=== PATIENT | female | born 1960 | race American Indian/Alaskan Native ===

== ENCOUNTER 2022-02-04 13:11 | Inpatient (IN) | payer BC ==
[2022-02-04] MEDS ORDERED: SODIUM CHLORIDE 0.9% 1000 ML 1,000 ML IV ONE ×2 (14:32→16:20)
[2022-02-04 15:08] LABS: Basophils # (Auto) 0.2 K/mm3 (0.0-0.1); Basophils % (Auto) 0.8 % (0.0-1.8); Hematocrit 34.4 % (30.3-42.9); Hemoglobin 11.1 gm/dl (10.1-14.3); Lymphocytes # (Auto) 1.4 K/mm3 (1.2-5.4); Mean Corpuscular HGB Conc 32 % (30-34); Mean Corpuscular Volume 77 fl (79-97); Monocytes # (Auto) 1.4 K/mm3 (0.0-0.8); Monocytes % (Auto) 7.2 % (0.0-7.3); Platelet Count 283 K/mm3 (140-440); Red Blood Count 4.48 M/mm3 (3.65-5.03); Red Cell Distribution Width 15.6 % (13.2-15.2)
--- NOTE | 2022-02-04 15:31 | Cat Scan Report ---
CT head/brain wo con INDICATION: ams, weakness . TECHNIQUE: Routine CT head. All CT scans at this location are performed using CT dose reduction for A TR by means of automated exposure control. COMPARISON: None. FINDINGS: Intracranial: Severino-white matter differentiation is maintained. No intracranial hemorrhage. No extra a xial collection. No hydrocephalus. No herniation. Partially empty appearance of sella. Sinuses: Mild mucosal thickening left ethmoid air cells. Otherwise, paranasal sinuses and mastoid air cells are essentially clear. Orbits: Globes are intact. Calvarium: No acute fracture. IMPRESSION: 1. No acute intracranial abnormality. Signer Name: Andres Corona MD Signed: 02/04/2022 3:26 PM Workstation Name: [id number]
[2022-02-04 16:00] LABS: Alanine Aminotransferase 15 units/L (7-56); Albumin 3.4 g/dL (3.9-5); BUN/Creatinine Ratio 32; Blood Urea Nitrogen 55 mg/dL (7-17); Calcium 8.8 mg/dL (8.4-10.2); Creatine Kinase MB 2.6 ng/mL (0.0-4.0); Hemolysis Index 19
[2022-02-04 16:11] LABS: Free T4 (Free Thyroxine) 1.05 ng/dL (0.76-1.46)
[2022-02-04] MEDS ORDERED: INSULIN REGULAR, HUMAN 100 UNITS/1 ML IV ONE (16:20)
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
--- NOTE | 2022-02-04 16:50 | XRay Report ---
CHEST 1 VIEW 02/04/2022 4:29 PM INDICATION / CLINICAL INFORMATION: weaknesss. COMPARISON: None available. FINDINGS: SUPPORT DEVICES: None. HEART / MEDIASTINUM: No significant abnormality. LUNGS / PLEURA: Nodular area right hilum. No acute appearing infiltrate. No pneumothorax. ADDITIONAL FINDINGS: No significant additional findings. IMPRESSION: 1. Nodular area right hilum is favored to be artifactual. Follow-up PA and lateral chest is recommend ed. 2. No acute infiltrate. Signer Name: Garrick Moore MD Signed: 02/04/2022 4:45 PM Workstation Name: [email or web address]
[2022-02-04] MEDS ORDERED: ONDANSETRON 4 MG/2 ML INJ IV PRN ×2 (17:33→20:09)
[2022-02-04] MEDS ORDERED: ACETAMINOPHEN 325 MG TAB PO PRN (17:33)
[2022-02-04] MEDS ORDERED: METOCLOPRAMIDE 10 MG/2 ML INJ IV PRN (20:09)
[2022-02-04] MEDS ORDERED: HYDROmorphone 0.5 MG/0.5 ML INJ IV PRN (20:09)
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
[2022-02-04] MEDS ORDERED: FAMOTIDINE 20 MG/2 ML INJ IV SCH (22:00)
[2022-02-04] MEDS: INSULIN GLARGINE 100 UNITS/ML SUB-Q SCH (23:13)
[2022-02-04] MEDS: INSULIN LISPRO 100 UNIT/ML SUB-Q SCH ×2 (23:14)
[2022-02-05] MEDS: INSULIN LISPRO 100 UNIT/ML SUB-Q SCH ×10 (02:50→22:11)
[2022-02-05 05:29] LABS: Hematocrit 33.7 % (30.3-42.9); Hemoglobin 10.9 gm/dl (10.1-14.3); Mean Corpuscular HGB Conc 32 % (30-34); Mean Corpuscular Volume 76 fl (79-97); Platelet Count 259 K/mm3 (140-440); Red Blood Count 4.45 M/mm3 (3.65-5.03); Red Cell Distribution Width 15.2 % (13.2-15.2)
[2022-02-05 05:52] LABS: Albumin 2.6 g/dL (3.9-5); Calcium 8.4 mg/dL (8.4-10.2)
[2022-02-05 06:35] LABS: Band Neutrophils # (Manual) 0.2 K/mm3; Basophils % (Manual) 0 % (0.0-1.8); Eosinophils % (Manual) 0 % (0.0-4.3); Monocytes % (Manual) 0 % (0.0-7.3); Total Cells Counted 100
[2022-02-05] MEDS: SODIUM CHLORIDE 0.9% 1000 ML 1,000 ML IV SCH ×2 (06:35→20:19)
[2022-02-05 06:43] LABS: Hypochromasia 1+; Platelet Estimate Consistent w Auto
[2022-02-05 06:44] LABS: Target Cells Rare
[2022-02-05] MEDS ORDERED: GLIMEPIRIDE 4 MG TAB PO SCH (08:00)
--- NOTE | 2022-02-05 09:06 | Electrocardiograph Report ---
[facility] Test Date: 2022-02-04 Test Time: 13:51:31 Pat Name: BETTY HORN Department: Room: A380 1 Gender: F Cell Phone Repair Technician: MAEVE : 1960 Requested By: DEVEN ZAVALA Order Number: [id number] Reading MD: Brown Lowe Measurements Intervals [place] Rate: 110 P: 63 TN: 119 QRS: -1 QRSD: 78 T: 21 QT: 318 QTc: 431 Interpretive Statements Sinus tachycardia nonspecific st-t No previous ECG available for comparison Electronically Signed On 02-05-2022 9:05:46 EDT by Brown Lowe
[2022-02-05] MEDS: metFORMIN XR 500MG TAB PO SCH (09:16)
[2022-02-05] MEDS: FAMOTIDINE 20 MG TAB PO SCH ×2 (09:16→21:22)
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
[2022-02-05] MEDS: MORPHINE 2 MG/1 ML INJ IV PRN (11:15)
[2022-02-05] MEDS: amLODIPine 10 MG TAB PO SCH (12:46)
[2022-02-05] MEDS: VALSARTAN 160MG TAB PO SCH ×2 (12:47→21:21)
[2022-02-05] MEDS: AZITHROMYCIN 250 MG TAB PO SCH (13:26)
[2022-02-05] MEDS ORDERED: metroNIDAZOLE 500 MG TAB PO SCH (14:00)
[2022-02-05 18:31] LABS: Bacteria,Urine 1+ /HPF (Negative); Bilirubin,Urine NEG (Negative); Blood,Urine NEG (Negative); Color,Urine Yellow (Yellow); Mucus,Urine FEW /HPF; Urobilinogen,Urine < 2.0 mg/dL (<2.0)
[2022-02-05 18:37] LABS: Amphetamine Screen,Urine Negative; Cannabinoid Screen,Urine Negative; Cocaine Screen,Urine Negative; Methadone Screen,Urine Negative; Opiate Screen,Urine Negative
[2022-02-05 19:07] LABS: Benzodiazepines Screen,Urine Positive
[2022-02-05] MEDS: INSULIN GLARGINE 100 UNITS/ML SUB-Q SCH (22:07)
[2022-02-06] MEDS: SODIUM CHLORIDE 0.9% 1000 ML 1,000 ML IV SCH ×3 (05:16→23:04)
[2022-02-06 05:58] LABS: Basophils % (Auto) 0.1 % (0.0-1.8); Eosinophils % (Auto) 0.2 % (0.0-4.3); Hematocrit 30.9 % (30.3-42.9); Hemoglobin 9.8 gm/dl (10.1-14.3); Lymphocytes # (Auto) 2.8 K/mm3 (1.2-5.4); Lymphocytes % (Auto) 16.1 % (13.4-35.0); Mean Corpuscular HGB Conc 32 % (30-34); Mean Corpuscular Volume 76 fl (79-97); Monocytes # (Auto) 1.1 K/mm3 (0.0-0.8); Monocytes % (Auto) 6.6 % (0.0-7.3); Platelet Count 240 K/mm3 (140-440); Red Blood Count 4.04 M/mm3 (3.65-5.03); Red Cell Distribution Width 15.1 % (13.2-15.2)
[2022-02-06 06:08] LABS: Calcium 8.1 mg/dL (8.4-10.2)
[2022-02-06] MEDS: metFORMIN XR 500MG TAB PO SCH (08:24)
[2022-02-06] MEDS: INSULIN LISPRO 100 UNIT/ML SUB-Q SCH ×9 (08:37→23:07)
[2022-02-06] MEDS: AZITHROMYCIN 250 MG TAB PO SCH (09:13)
[2022-02-06] MEDS: MORPHINE 2 MG/1 ML INJ IV PRN (09:13)
[2022-02-06] MEDS: FAMOTIDINE 20 MG TAB PO SCH ×2 (09:14→22:55)
[2022-02-06] MEDS: amLODIPine 10 MG TAB PO SCH (09:14)
[2022-02-06] MEDS: VALSARTAN 160MG TAB PO SCH ×2 (09:14→22:55)
[2022-02-06] MEDS: METOPROLOL SUCCINATE XL 50 MG TAB PO SCH (09:14)
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
[2022-02-06] MEDS: PREGABALIN 75 MG CAP PO SCH ×2 (12:22→22:55)
[2022-02-06] MEDS: INSULIN GLARGINE 100 UNITS/ML SUB-Q SCH (23:05)
[2022-02-07] MEDS: ACETAMINOPHEN 325 MG TAB PO PRN (00:17)
[2022-02-07] MEDS: SODIUM CHLORIDE 0.9% 1000 ML 1,000 ML IV SCH (04:50)
[2022-02-07] MEDS: INSULIN LISPRO 100 UNIT/ML SUB-Q SCH ×8 (08:40→23:08)
[2022-02-07] MEDS ORDERED: cefTRIAXone/NS 1 GM/50 ML 1 GM/50 ML BAG IV SCH (10:00)
[2022-02-07] MEDS: metFORMIN XR 500MG TAB PO SCH (10:22)
[2022-02-07 11:14] LABS: Calcium 7.6 mg/dL (8.4-10.2)
[2022-02-07 11:17] LABS: Hematocrit 32.6 % (30.3-42.9); Hemoglobin 10.6 gm/dl (10.1-14.3); Mean Corpuscular HGB Conc 33 % (30-34); Mean Corpuscular Volume 75 fl (79-97); Platelet Count 249 K/mm3 (140-440); Red Blood Count 4.32 M/mm3 (3.65-5.03); Red Cell Distribution Width 15.1 % (13.2-15.2)
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
[2022-02-07 11:41] LABS: Eosinophils # (Auto) 0.2 K/mm3 (0.0-0.4); Monocytes # (Auto) 0.9 K/mm3 (0.0-0.8); Monocytes % (Auto) 5.6 % (0.0-7.3)
[2022-02-07 11:46] LABS: Basophils % (Auto) 0.2 % (0.0-1.8); Lymphocytes # (Auto) 2.9 K/mm3 (1.2-5.4); Lymphocytes % (Auto) 18.1 % (13.4-35.0)
[2022-02-07] MEDS: METOPROLOL SUCCINATE XL 50 MG TAB PO SCH (12:00)
[2022-02-07] MEDS: VALSARTAN 160MG TAB PO SCH ×2 (12:00→23:52)
[2022-02-07] MEDS: FAMOTIDINE 20 MG TAB PO SCH ×2 (12:22→23:51)
[2022-02-07] MEDS: amLODIPine 10 MG TAB PO SCH (12:36)
[2022-02-07] MEDS: PREGABALIN 75 MG CAP PO SCH ×2 (14:22→23:51)
[2022-02-07] MEDS: AZITHROMYCIN 250 MG TAB PO SCH (14:22)
[2022-02-07] MEDS: ALBUTEROL 2.5 MG/3 ML NEBU IH PRN ×2 (18:54→18:56)
[2022-02-07] MEDS ORDERED: BUDESONIDE 0.5 MG/2 ML NEBU IH ONE (20:00)
[2022-02-07] MEDS ORDERED: VANCOMYCIN/NS 1 GM/250 ML 1 GM/250 ML BAG IV SCH (22:00)
--- NOTE | 2022-02-07 22:06 | XRay Report ---
CHEST 1 VIEW 02/07/2022 8:57 PM INDICATION / CLINICAL INFORMATION: SOB and wheezing. COMPARISON: 02/04/2022 FINDINGS: SUPPORT DEVICES: None. HEART / MEDIASTINUM: No significant abnormality. LUNGS / PLEURA: There are low lung volumes bilaterally. No focal infiltrate is seen. No pneumothorax. ADDITIONAL FINDINGS: No significant additional findings. IMPRESSION: 1. No acute findings. Signer Name: Antonio Herrera MD Signed: 02/07/2022 10:02 PM Workstation Name: [id number]
[2022-02-07] MEDS: INSULIN GLARGINE 100 UNITS/ML SUB-Q SCH (23:06)
[2022-02-07] MEDS: VANCOMYCIN 2,000 MG in SODIUM CHLORIDE 0.9% 500 ML 500 ML IV SCH (23:50)
[2022-02-07] MEDS: CEFEPIME/NS 1 GM/100 ML 1 GM/100 ML BAG IV SCH (23:51)
[2022-02-08] MEDS: ACETAMINOPHEN 325 MG TAB PO PRN ×2 (05:39→16:49)
[2022-02-08] MEDS: CEFEPIME/NS 1 GM/100 ML 1 GM/100 ML BAG IV SCH ×3 (05:40→21:52)
[2022-02-08] MEDS: INSULIN LISPRO 100 UNIT/ML SUB-Q SCH ×8 (08:15→21:53)
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
[2022-02-08] MEDS: VANCOMYCIN 2,000 MG in SODIUM CHLORIDE 0.9% 500 ML 500 ML IV SCH ×2 (10:01→21:52)
[2022-02-08] MEDS: PREGABALIN 75 MG CAP PO SCH ×2 (10:01→21:52)
[2022-02-08] MEDS: metFORMIN XR 500MG TAB PO SCH (10:01)
[2022-02-08] MEDS: FAMOTIDINE 20 MG TAB PO SCH ×2 (10:02→21:52)
[2022-02-08] MEDS: amLODIPine 10 MG TAB PO SCH (10:02)
[2022-02-08] MEDS: METOPROLOL SUCCINATE XL 50 MG TAB PO SCH (10:02)
[2022-02-08] MEDS ORDERED: MORPHINE 2 MG/1 ML INJ IV PRN (11:05)
[2022-02-08] MEDS: VALSARTAN 160MG TAB PO SCH ×2 (11:52→21:53)
[2022-02-08] MEDS ORDERED: ALBUTEROL 8.5 GM MDI INHALATION IH PRN (13:04)
[2022-02-08] MEDS: ALBUTEROL 2.5 MG/3 ML NEBU IH PRN (14:09)
[2022-02-08 15:25] LABS: Basophils % (Auto) 0.2 % (0.0-1.8); Eosinophils # (Auto) 0.2 K/mm3 (0.0-0.4); Eosinophils % (Auto) 1.3 % (0.0-4.3); Hematocrit 32.8 % (30.3-42.9); Hemoglobin 10.2 gm/dl (10.1-14.3); Lymphocytes # (Auto) 3.6 K/mm3 (1.2-5.4); Lymphocytes % (Auto) 22.1 % (13.4-35.0); Mean Corpuscular HGB Conc 31 % (30-34); Mean Corpuscular Volume 77 fl (79-97); Monocytes # (Auto) 1.3 K/mm3 (0.0-0.8); Monocytes % (Auto) 7.9 % (0.0-7.3); Platelet Count 269 K/mm3 (140-440); Red Blood Count 4.28 M/mm3 (3.65-5.03); Red Cell Distribution Width 15.1 % (13.2-15.2)
[2022-02-08 15:38] LABS: Calcium 7.4 mg/dL (8.4-10.2)
[2022-02-08] MEDS: INSULIN GLARGINE 100 UNITS/ML SUB-Q SCH (21:54)
[2022-02-09] MEDS: CEFEPIME/NS 1 GM/100 ML 1 GM/100 ML BAG IV SCH ×3 (05:16→21:49)
[2022-02-09] MEDS: INSULIN LISPRO 100 UNIT/ML SUB-Q SCH ×8 (07:54→21:49)
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
[2022-02-09] MEDS ORDERED: SODIUM CHLORIDE 0.9% 1000 ML 1,000 ML IV SCH (08:15)
[2022-02-09] MEDS ORDERED: VANCOMYCIN 2,000 MG in SODIUM CHLORIDE 0.9% 500 ML 500 ML IV SCH (08:30)
[2022-02-09] MEDS ORDERED: VANCOMYCIN PHARMACY TO DOSE IV SCH (09:00)
[2022-02-09] MEDS: FAMOTIDINE 20 MG TAB PO SCH ×2 (09:11→21:48)
[2022-02-09] MEDS: metFORMIN XR 500MG TAB PO SCH (09:11)
[2022-02-09] MEDS: PREGABALIN 75 MG CAP PO SCH (09:11)
[2022-02-09] MEDS: METOPROLOL SUCCINATE XL 50 MG TAB PO SCH (09:11)
[2022-02-09] MEDS: amLODIPine 10 MG TAB PO SCH (09:12)
[2022-02-09 11:47] LABS: Basophils % (Auto) 0.3 % (0.0-1.8); Eosinophils # (Auto) 0.3 K/mm3 (0.0-0.4); Eosinophils % (Auto) 2.2 % (0.0-4.3); Hematocrit 28.9 % (30.3-42.9); Hemoglobin 9.3 gm/dl (10.1-14.3); Lymphocytes % (Auto) 22.3 % (13.4-35.0); Mean Corpuscular HGB Conc 32 % (30-34); Mean Corpuscular Volume 75 fl (79-97); Monocytes % (Auto) 7.4 % (0.0-7.3); Platelet Count 270 K/mm3 (140-440); Red Blood Count 3.87 M/mm3 (3.65-5.03); Red Cell Distribution Width 15.3 % (13.2-15.2)
[2022-02-09 11:59] LABS: Calcium 7.4 mg/dL (8.4-10.2)
[2022-02-09] MEDS: ACETAMINOPHEN 325 MG TAB PO PRN (12:41)
[2022-02-09] MEDS: LIDOCAINE 5% 1 EACH PATCH TD SCH (12:41)
[2022-02-09] MEDS: AMPICILLIN/NS 2 GM/100 ML 2 GM/100 ML BAG IV SCH ×3 (14:12→20:15)
[2022-02-09] MEDS: ACYCLOVIR IV SCH ×2 (15:37→21:47)
[2022-02-09] MEDS: SODIUM CHLORIDE 0.9% IV SCH ×2 (15:37→21:47)
[2022-02-09] MEDS: VANCOMYCIN 1,500 MG in SODIUM CHLORIDE 0.9% 500 ML 500 ML IV SCH (19:10)
[2022-02-09] MEDS: INSULIN GLARGINE 100 UNITS/ML SUB-Q SCH (21:50)
[2022-02-10] MEDS: AMPICILLIN/NS 2 GM/100 ML 2 GM/100 ML BAG IV SCH ×4 (00:39→13:14)
[2022-02-10] MEDS: CEFEPIME/NS 1 GM/100 ML 1 GM/100 ML BAG IV SCH (05:39)
[2022-02-10] MEDS: INSULIN LISPRO 100 UNIT/ML SUB-Q SCH ×4 (07:38→12:55)
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
[2022-02-10] MEDS: METOPROLOL SUCCINATE XL 50 MG TAB PO SCH (09:53)
[2022-02-10] MEDS: amLODIPine 10 MG TAB PO SCH (09:53)
[2022-02-10] MEDS: FAMOTIDINE 20 MG TAB PO SCH (09:53)
[2022-02-10] MEDS: SODIUM CHLORIDE 0.9% IV SCH (10:05)
[2022-02-10] MEDS: ACYCLOVIR IV SCH (10:05)
[2022-02-10 10:37] LABS: INR 0.98 (0.87-1.13)
[2022-02-10 10:38] LABS: Partial Thromboplastin Time 33.8 Sec. (24.2-36.6)
[2022-02-10] MEDS: VANCOMYCIN 1,500 MG in SODIUM CHLORIDE 0.9% 500 ML 500 ML IV SCH (11:00)
[2022-02-10] MEDS: LIDOCAINE 5% 1 EACH PATCH TD SCH (11:00)
--- NOTE | 2022-02-10 11:12 | Consultation ---
History of Present Illness - Reason for Consult Consult date: 02/10/22 sepsis, AMS Requesting physician: KHOA PENG - History of Present Illness The patient is a 61-year-old female with history of diet-controlled diabetes was admitted with generalized weakness, polydipsia, polyuria. She was living in a hotel because her house had fired. Upon work-up in the ER, noted to have significant hyperglycemia and confusion. CT head without acute abnormality. C hest x-ray did not reveal any pneumonia. Labs also showed leukocytosis. She was started on IV fluids. Admission creatinine was 1.7. Also reported some loose stools. 3 days into admission, spiked a fever of 102.3 F, had another fever of 101.4 F on 02/08/2022. Question of meningitis was raised, patient was then switched to ampicillin, cefepime, vancomycin. Infectious diseases was consulted for additional evaluation, acyclovir was also added. Patient is still confused, history is somewhat limited. Per RN, currently no diarrhea. On 01/29/2022 patient returned from a 10-day trip to [facility] where she had taken students along. She is originally from the [facility]. Reportedly, she did take malaria prophylaxis while in [facility], stopped 2 days after returning. Does not know if she was taking a daily or weekly medication. Review of Systems: General: Fever HEENT: no new visual disturbance Respiratory: No cough, sputum, hemoptysis or shortness of breath Cardiovascular: No chest pain, syncope Gastrointestinal: No nausea, vomiting or diarrhea Genitourinary: No dysuria or hematuria Musculoskeletal: No new or worsening neck pain or back pain Neurologic: No headaches, seizures Hematologic: No easy bruising or bleeding Endocrine: No night sweats or acute weight loss Skin: negative for rash, jaundice Psychiatric: No suicidal or homicidal ideation Medications and Allergies Allergies Allergy/AdvReac Type Severity Reaction Status Date / Time chocolate flavor Allergy Wheezing Verified 02/06/22 09:59 ciprofloxacin [From Cipro] Allergy Unknown Verified 02/06/22 09:59 Milk Containing Products Allergy Wheezing Verified 02/06/22 09:59 peanut Allergy Wheezing Verified 02/06/22 10:04 Home Medications Medication Instructions Recorded Confirmed Last Taken Type Albuterol Sulfate [Proventil Hfa] 2 puff IH Q4H PRN 02/06/22 02/06/22 Unknown History Atovaquone/Proguanil HCl [Malarone 1 each PO DAILY 02/06/22 02/06/22 Unknown History 250-100 mg] Black Seed Oil 1 cap PO QDAY 02/06/22 02/06/22 Unknown History Blood Pressure Support 1 tab PO QDAY 02/06/22 02/06/22 Unknown History Blood Sugar Support 1 tab PO QDAY 02/06/22 02/06/22 Unknown History Calcium/Magnesium/Vitamin D3 1 each PO QDAY 02/06/22 02/06/22 Unknown History [Yonas-Mag Complex 300-150 mg Tab] Cider Vinegar [Apple Cider Vinegar] 300 mg PO QDAY 02/06/22 02/06/22 Unknown H istory Cranberry 500 mg PO QDAY 02/06/22 02/06/22 Unknown History Fluticasone/Vilanterol [Breo 1 puff INHALATION DAILY 02/06/22 02/06/22 Unknown History Ellipta 200-25 Mcg INH] Kidney Support 1 tab PO QDAY 02/06/22 02/06/22 Unknown History Lysine 1,000 mg PO QDAY 02/06/22 02/06/22 Unknown History Magnesium 250 mg PO QDAY 02/06/22 02/06/22 Unknown History Milk Thistle 500 mg PO QDAY 02/06/22 02/06/22 Unknown History Mv-Min/FA/Vit K/Lycop/Lut/Zeax 1 tab PO QDAY 02/06/22 02/06/22 Unknown History [Ocuvite Eye + Multi Tablet] Natural Bone Strength 1 tab PO QDAY 02/06/22 02/06/22 Unknown History Pregabalin [Lyrica] 75 mg PO BID 02/06/22 02/06/22 Unknown History Zinc [Zinc 50mg TAB] 50 mg PO QDAY 02/06/22 02/06/22 Unknown History Active Meds: Active Medications Acetaminophen (Acetaminophen 325 Mg Tab) 650 mg PO Q4H PRN PRN Reason: Pain MILD(1-3)/Fever >100.5/PEREZ Last Admin: 02/09/22 12:41 Dose: 650 mg Albuterol (Albuterol 2.5 Mg/3 Ml Nebu) 2.5 mg IH Q4HRT PRN PRN Reason: Wheezing Last Admin: 02/08/22 14:09 Dose: 2.5 mg Amlodipine Besylate (Amlodipine 10 Mg Tab) 10 mg PO QDAY [facility] Last Admin: 02/10/22 09:53 Dose: 10 mg Enoxaparin Sodium (Enoxaparin 40 Mg/0.4 Ml Inj) 40 mg SUB-Q QDAY@2200 SP; Protocol Famotidine (Famotidine 20 Mg Tab) 20 mg PO BID [facility] Last Admin: 02/10/22 09:53 Dose: 20 mg Cefepime HCl (Cefepime/Ns 1 Gm/100 Ml) 1 gm in 100 mls @ 200 mls/hr IV Q8H [facility]; Protocol Last Admin: 02/10/22 05:39 Dose: 200 mls/hr Sodium Chloride (Nacl 0.9% 1000 Ml) 1,000 mls @ 100 mls/hr IV DIRECT SP Stop: 02/10/22 18:14 Last Admin: 02/09/22 09:14 Dose: 100 mls/hr Vancomycin HCl 1,500 mg/ (Sodium Chloride) 530 mls @ 333.333 mls/hr IV Q18H [facility] Last Admin: 02/10/22 11:00 Dose: 333.333 mls/hr Ampicillin Sodium (Ampicillin/Ns 2 Gm/100 Ml) 2 gm in 100 mls @ 100 mls/hr IV Q4H [facility]; Protocol Stop: 02/10/22 16:59 Last Admin: 02/10/22 09:55 Dose: 100 mls/hr Acyclovir 600 mg/ Sodium (Chloride) 112 mls @ 100 mls/hr IV Q12HR [facility] Insulin Glargine (Insulin Glargine 100 Units/Ml) 30 units SUB-Q QHS [facility] Last Admin: 02/09/22 21:50 Dose: 30 units Insulin Human Lispro (Insulin Lispro 100 Unit/Ml) 6 unit SUB-Q ACHS [facility] Last Admin: 02/10/22 07:38 Dose: Not Given Insulin Human Lispro (Insulin Lispro 100 Unit/Ml) 0 unit SUB-Q ACHS [facility]; Protocol Last Admin: 02/10/22 07:38 Dose: Not Given Labetalol HCl (Labetalol 20 Mg/4 Ml Inj) 10 mg IV Q4H PRN PRN Reason: sbp> 160 Lidocaine (Lidocaine 5% 1 Each Patch) 1 each TD QDAY [facility] Last Admin: 02/10/22 11:00 Dose: 1 each Metoclopramide HCl (Metoclopramide 10 Mg/2 Ml Inj) 10 mg IV Q6H PRN PRN Reason: Nausea And Vomiting Metoprolol Succinate (Metoprolol Succinate Xl 50 Mg Tab) 50 mg PO QDAY [facility] Last Admin: 02/10/22 09:53 Dose: 50 mg Ondansetron HCl (Ondansetron 4 Mg/2 Ml Inj) 4 mg IV Q8H PRN PRN Reason: Nausea And Vomiting Sodium Chloride (Sodium Chloride 0.9% 10 Ml Flush Syringe) 10 ml IV PRN PRN PRN Reason: LINE FLUSH Sodium Chloride (Sodium Chloride 0.9% 10 Ml Flush Syringe) 10 ml IV BID [facility] Last Admin: 02/10/22 09:53 Dose: 10 ml Physical Examination - Physical Exam Narrative exam: Physical Exam: Constitutional: Alert, cooperative. No acute distress Head, Ears, Nose: Normocephalic, atraumatic. External ears, nose normal Eyes: Conjunctivae/corneas clear. No icterus. No ptosis. Neck: Supple, no meningeal signs Cardiovascular: S1, S2 + Respiratory: Good air entry, clear to auscultation bilaterally GI: Soft, non-tender; bowel sounds normal. No peritoneal signs Musculoskeletal: No pedal edema, no cyanosis. Skin: No rash or abscess Hem/Lymphatic: No palpable cervical or supraclavicular nodes. No lymphangitis Psych: calm, confused Neurological: Awake, alert, but confused, answering a few basic questions. - Constitutional Vitals: Vital Signs Temp Pulse Resp BP Pulse Ox 98.7 F 87 16 168/83 99 02/09/22 22:23 02/10/22 09:53 02/09/22 22:23 02/10/22 09:53 02/10/22 08:32 Temperature -Last 24 Hours Temperature 98.7 F Temperature 99.3 F Temperature 99.1 F Results - Labs CBC & Chem 7: 02/09/22 10:56 02/09/22 10:56 Labs: Abnormal lab results 02/09/22 02/09/22 02/09/22 Range/Units 10:56 10:56 11:19 WBC 13.7 H (4.5-11.0) K/mm3 Hgb 9.3 L (10.1-14.3) gm/dl Hct 28.9 L (30.3-42.9) % MCV 75 L (79-97) fl MCH 24 L (28-32) pg RDW 15.3 H (13.2-15.2) % Garrett % (Auto) 7.4 H (0.0-7.3) % Garrett # (Auto) 1.0 H (0.0-0.8) K/mm3 Seg Neutrophils # 9.2 H (1.8-7.7) K/mm3 Sodium 135 L (137-145) mmol/L Carbon Dioxide 19 L (22-30) mmol/L BUN 27 H (7-17) mg/dL Creatinine 1.4 H (0.6-1.2) mg/dL Glucose 151 H (65-100) mg/dL POC Glucose 135 H (70-105) mg/dL Calcium 7.4 L (8.4-10.2) mg/dL 02/09/22/02/26 Range/Units 22:21 07:37 WBC (4.5-11.0) K/mm3 Hgb (10.1-14.3) gm/dl Hct (30.3-42.9) % MCV (79-97) fl MCH (28-32) pg RDW (13.2-15.2) % Garrett % (Auto) (0.0-7.3) % Garrett # (Auto) (0.0-0.8) K/mm3 Seg Neutrophils # (1.8-7.7) K/mm3 Sodium (137-145) mmol/L Carbon Dioxide (22-30) mmol/L BUN (7-17) mg/dL Creatinine (0.6-1.2) mg/dL Glucose (65-100) mg/dL POC Glucose 138 H 136 H (70-105) mg/dL Calcium (8.4-10.2) mg/dL - Imaging and Cardiology Chest x-ray: report reviewed, image reviewed (no pneumonia) Assessment and Plan Cultures: 02/05/2022 blood culture: GPC in 1 of 4 bottles 02/08/2022 blood culture: No growth A/P: 61-year-old female with history of diet-controlled diabetes was admitted with generalized weakness, polydipsia, polyuria. She was living in a hotel because her house had fired. Upon work-up in the ER, noted to have significant hyperglycemia and confusion: #Sepsis, leukocytosis: Etiology unclear. #GPC bacteremia: 1 out of 4 bottles. Isolate sent to reference lab. #Confusion/acute encephalopathy: Agree with evaluating for meningitis. #Returning traveler from a 10-day trip to [facility]: Came back on 01/29/2022. Reportedly she did take malaria prophylaxi while in [facility], stopped 2 days after returning. Does not know if she was taking a daily or weekly medication. #Diarrhea: Present on admission but now resolved. No stool studies were collected. #KIRTI: Renally adjust antibiotics. Recs: -Follow-up malaria smear/antigen test -If she has more diarrhea, please send stool studies -Agree with LP, CSF for cell count, protein, glucose, culture and viral PCR for HSV, VZV, enterovirus -If fever continues, consider CT abdomen and pelvis with IV contrast, hopefully her creatinine will improve prior to her receiving IV contrast -Empiric ceftriaxone, ampicillin, vancomycin, acyclovir renally adjusted -f/u blood culture identification, (Isolate sent to reference lab) Alycia Dos Santos MD, FACP, [facility] O: [phone] F: [phone] C: [phone]
[2022-02-10 11:52] LABS: Basophils # (Auto) 0.1 K/mm3 (0.0-0.1); Basophils % (Auto) 0.5 % (0.0-1.8); Eosinophils # (Auto) 0.2 K/mm3 (0.0-0.4); Eosinophils % (Auto) 1.3 % (0.0-4.3); Hematocrit 33.6 % (30.3-42.9); Hemoglobin 10.9 gm/dl (10.1-14.3); Lymphocytes # (Auto) 2.2 K/mm3 (1.2-5.4); Lymphocytes % (Auto) 16.3 % (13.4-35.0); Mean Corpuscular HGB Conc 32 % (30-34); Mean Corpuscular Volume 75 fl (79-97); Monocytes % (Auto) 7.4 % (0.0-7.3); Platelet Count 330 K/mm3 (140-440); Red Blood Count 4.47 M/mm3 (3.65-5.03); Red Cell Distribution Width 15.2 % (13.2-15.2)
[2022-02-10] MEDS ORDERED: cefTRIAXone/NS 2 GM/100 ML 2 GM/100 ML BAG IV SCH (12:00)
[2022-02-10 12:52] VITALS: BP 159/86
--- NOTE | 2022-02-10 15:06 | Discharge Summary ---
Providers - Providers Date of Admission: 02/04/22 17:33 Date of discharge: 02/10/22 Attending physician: KHOA PENG MD 02/05/22 07:02 Consult to Dietitian/Nutrition [CONS] Routine Physician Instructions: Diet education Reason For Exam: New onset diabetes Reason for Consult: Pt needs oral supplement 02/06/22 08:11 Physical Therapy Evaluation and Treat [CONS] Routine Comment: Reason For Exam: lower leg weakness 02/07/22 11:17 Consult to Case Management [CONS] Routine Services Needed at Discharge: Physical Therapy Notified:: CM Comment:: C PT vs JULIA 02/08/22 14:25 Consult to Physician [CONS] Routine Comment: Consulting Provider: CAROLINE AYALA Physician Instructions: Reason For Exam: GPC bacteremia, travel to [facility], suspect malaria Primary care physician: [employer] Hospitalization Reason for admission: meningitis Condition: Stable Hospital course: I had an extensive decision with patient POA Mr Perera and Mr Bradford. Discussed ongoing care with them about my clinical impression, diagnosis, and plan of treatment of patient .They expressed understanding and gratitute for my doing so. They did, however, approach me with a request to transfer the patient to tertiary center. I explained that the patient's current medical problems do not require transfer and another hospital would likely decline the transfer. I offered the solution of them obtaining an accepting doctor at [facility] with whom I told them I could signout the case to. They attempted to do so via a [place] physician however this was unsuccessul as the [place] physician did not work at [place]. They then offered the alternative of leaving AMA and taking her via ambulance themselves. I explained that while this may be within their rights as POA, our administration/CM would need to be notified for verification of POA status given patient's current mental status. I recommended they approach the charger to ask for a medical case manager or admin official to do so. After this conversation, I called approximately 2 hrs hour later to ask the patient's nurse regarding their clinical status and the status of diagnostic testing/procedures ordered for today. The patient's RN, BAIRON STEWART, notified me that the patient POA left Against Medical Advice. Family had arranged transportation and had taken patient already. I was not given notification of the patient leaving Against Medical Advice prior to this. Disposition: 07 LEFT AGAINST MEDICAL ADVICE Final Discharge Diagnosis (Prints w/discharge instructions): Meningitis Time spent for discharge: 35 Core Measure Documentation - Palliative Care Palliative Care/ Comfort Measures: Not Applicable - Core Measures Any of the following diagnoses?: none Exam - Constitutional Vitals: Temp Pulse Resp BP Pulse Ox 98.7 F 88 20 159/86 100 02/10/22 11:24 02/10/22 11:24 02/10/22 11:24 02/10/22 11:24 02/10/22 11:24 Plan Follow up with: HEIDY SHELTON MD [Primary Care Provider] - 3-5 Days
[2022-02-10] MEDS ORDERED: ACYCLOVIR 600 MG in SODIUM CHLORIDE 0.9% 100 ML IV SCH (22:00)
[2022-02-10] MEDS ORDERED: ACYCLOVIR 800 MG in SODIUM CHLORIDE 0.9% 250ML 250 ML IV SCH (22:00)
[2022-02-10] MEDS ORDERED: ENOXAPARIN 40 MG/0.4 ML INJ SUB-Q SCH (22:00)
== END 2022-02-10 14:10 | disposition left against medical advice (07) | DRG 871 ==
LOC: ED 13:11 → OBSVTOIN 17:33 → 3A 17:33
PROVIDERS: ADMIT Internal Medicine; ATTEND Internal Medicine
DX: A41.89 Other specified sepsis (principal); E11.00 Type 2 diabetes mellitus with hyperosmolarity without nonketotic hyperglycemic-hyperosmolar coma (NKHHC); N17.0 Acute kidney failure with tubular necrosis; G93.41 Metabolic encephalopathy; G03.9 Meningitis, unspecified; A09 Infectious gastroenteritis and colitis, unspecified; E86.0 Dehydration
CPT/HCPCS: 36415; 70450; 71045; 80048; 80053; 80307; 80320; 81001; 82140; 82550; 82553; 82805; 82962; 83036; 83615; 83735; 84439; 84443; 84484; 85007; 85025; 85610; 85730; 87040; 87207; 93005; 94640; G0378; J3490; Q9967; G0480; J0133; J0290; J0692; J0696; J1815; J2270; J3370; J7030; J7040; U0003